=== PATIENT | female | born 1995 ===

== ENCOUNTER 2016-12-30 11:29 | Emergency (ER) | payer OTHER ==
[2016-12-30 11:42] VITALS: BP 126/75
--- NOTE | 2016-12-30 13:53 | UC ---
UC General HPI - HPI Summary HPI Summary: patient has had sore throat, cough, n/v/d, and feverish. - History of Current Complaint Hx Obtained From: Patient Onset/Duration: Sudden Onset, Lasting Days Timing: Constant Onset Severity: Severe Current Severity: Moderate Associated Signs & Symptoms: Positive: Cough, Diarrhea, Fever, Nausea, Wheezing <Nataly Ely - Last Filed: 12/30/16 13:49> <Fabiana Ogden - Last Filed: 12/30/16 14:11> - History of Current Complaint Chief Complaint: UCRespiratory Stated Complaint: FEVER COUGH SORE THROAT Time Seen by Provider: 12/30/16 13:01 - Allergy/Home Medications Allergies/Adverse Reactions: Allergies Allergy/AdvReac Type Severity Reaction Status Date / Time No Known Allergies Allergy Verified 12/30/16 11:42 PMH/Surg Hx/FS Hx/Imm Hx Previously Healthy: Yes Respiratory History Of: Reports: Asthma - WEATHER INDUCED - Surgical History Surgical History: None Surgery Procedure, Year, and Place: [place] teeth - Family History Known Family History: Negative: Cardiac Disease, Hypertension - Social History Alcohol Use: Occasionally Substance Use Type: None Smoking Status (MU): Never Smoked Tobacco Have You Smoked in the Last Year: No <Nataly Ely - Last Filed: 12/30/16 13:49> Review of Systems Constitutional: Fever, Fatigue Skin: Negative Eyes: Negative ENT: Sore Throat Respiratory: Shortness Of Breath, Cough Cardiovascular: Negative Gastrointestinal: Vomiting, Diarrhea Genitourinary: Negative Motor: Negative Neurovascular: Negative Musculoskeletal: Negative Neurological: Headache Psychological: Negative All Other Systems Reviewed And Are Negative: Yes <Nataly Ely - Last Filed: 12/30/16 13:49> Physical Exam Triage Information Reviewed: Yes Appearance: Well-Nourished, Ill-Appearing, Pain Distress Vital Signs: Initial Vital Signs Temp 97.9 F 12/30/16 11:39 Pulse 78 12/30/16 11:39 Resp 12 12/30/16 11:39 BP 126/75 12/30/16 11:39 Pulse Ox 97 12/30/16 11:39 Vital Signs Reviewed: Yes Eye Exam: Normal Eyes: Positive: Conjunctiva Clear ENT: Positive: Normal ENT inspection, Hearing grossly normal, Pharyngeal erythema, TMs normal Dental Exam: Normal Neck exam: Normal Respiratory Exam: Normal Respiratory: Positive: Chest non-tender, No respiratory distress, No accessory muscle use, Wheezing, Inspiration Cardiovascular Exam: Normal Cardiovascular: Positive: RRR, No Murmur, Pulses Normal Abdominal Exam: Normal Abdomen Description: Positive: Nontender, No Organomegaly, Soft Bowel Sounds: Positive: Hyperactive Musculoskeletal Exam: Normal Musculoskeletal: Positive: Strength Intact, ROM Intact, No Edema Neurological Exam: Normal Neurological: Positive: Alert, Muscle Tone Normal Psychological Exam: Normal Skin Exam: Normal <Nataly Ely - Last Filed: 12/30/16 13:49> Vital Signs: Initial Vital Signs Temp 97.9 F 12/30/16 11:39 Pulse 78 12/30/16 11:39 Resp 12 12/30/16 11:39 BP 126/75 12/30/16 11:39 Pulse Ox 97 12/30/16 11:39 <Fabiana Ogden - Last Filed: 12/30/16 14:11> Course/Dx - Course Course Of Treatment: hx obtained, exam performed, meds reviewed, treated for nausea and diarrhea and asthma exacerbation - Differential Dx - Multi-Symptom Provider Diagnoses: viral syndrome. nasuea. diarrhea. bronchospasm <Nataly Ely - Last Filed: 12/30/16 13:49> Discharge <Nataly Ely - Last Filed: 12/30/16 13:49> <Fabiana Ogden - Last Filed: 12/30/16 14:11> - Discharge Plan Condition: Stable Disposition: HOME Prescriptions: Albuterol HFA INHALER* [Ventolin HFA Inhaler*] 2 puff INH Q4H PRN #1 mdi PRN Reason: Cough Ondansetron ODT TAB* [Zofran 4 MG Odt TAB*] 4 mg PO Q8H PRN #15 tab.odt PRN Reason: Nausea predniSONE TAB* [Deltasone TAB*] 40 mg PO DAILY #14 tab Patient Education Materials: Viral Syndrome (ED) Referrals: Arian Gonzalez MD [Primary Care Provider] - Additional Instructions: 1. take the medications as prescribed. 2. Increase your fluid intake and get plenty of rest 3. Follow up with any increasing symptoms. Attestation Statement User Type: Provider - I was available for consult. This patient was seen by the MICAH. The patient was not presented to, seen by, or examined by me. <Fabiana Ogden - Last Filed: 12/30/16 14:11>
== END 2016-12-30 13:56 | disposition home or self-care (01) ==
LOC: UCEAST 11:29
DX: B34.9 Viral infection, unspecified (principal); R11.0 Nausea; R19.7 Diarrhea, unspecified; J98.01 Acute bronchospasm
CPT/HCPCS: 87502; 87651; 99212; G0463